=== PATIENT | female | born 1990 | race Caucasian/White ===

== ENCOUNTER 2017-12-28 14:17 | Emergency (ER) | payer OTHER ==
[2017-12-28 15:44] LABS: APPEARANCE HAZY (CLEAR); BILIRUBIN NEGATIVE (NEGATIVE); COLOR YELLOW (YELLOW); GLUCOSE NEGATIVE (NEGATIVE); KETONE NEGATIVE (NEGATIVE); NITRITE NEGATIVE (NEGATIVE); PROTEIN TRACE mg/dL (NEGATIVE); UROBILINOGEN NORMAL (NORMAL)
[2017-12-28 15:45] LABS: WHITE CELLS - URINE 0-5 /hpf (0-5)
[2017-12-28 15:46] LABS: BACTERIA FEW /hpf (NONE SEEN)
[2017-12-28 15:49] LABS: HCG SERUM NEGATIVE (NEGATIVE)
== END 2017-12-28 20:42 | disposition home or self-care (01) ==
LOC: D.ER 14:17
PROVIDERS: Emergency Medicine
DX: R10.32 Left lower quadrant pain (principal); R10.31 Right lower quadrant pain; R10.2 Pelvic and perineal pain; N94.9 Unspecified condition associated with female genital organs and menstrual cycle; N76.0 Acute vaginitis

== ENCOUNTER 2018-07-19 16:08 | Emergency (ER) | payer OTHER ==
[~2018-07-19] VITALS: Ht 162.6 cm; Wt 45.9 kg
[2018-07-19 16:13] VITALS: Ht 162.6 cm; Wt 45.9 kg
[2018-07-19 16:54] LABS: BASOPHILS 0 % (0-2); EOSINOPHILS 0 % (0-7); HEMATOCRIT 36.7 % (36.0-48.0); HEMOGLOBIN 12.4 g/dL (12-16); IMMATURE GRANULOCYTES 0.1 % (0-5); LYMPHOCYTES 7.9 % (15-50); MCH 28.8 pg (26.0-34.0); MCHC 33.8 g/dL (31.0-37.0); MCV 85.3 fL (80.0-100.0); MEAN PLATELET VOLUME 9.6 fL (7.4-10.4); MONOCYTES 7.9 % (2-11); NEUTROPHILS 84.1 % (40-80); PLATELET COUNT 169 10x3/uL (130-400); RDW 13.8 % (11.5-14.5); WBC 8.9 10x3/uL (4.8-10.8)
[2018-07-19 17:14] LABS: HCG URINE NEGATIVE (NEGATIVE)
[2018-07-19 17:15] LABS: APPEARANCE HAZY (CLEAR); BILIRUBIN NEGATIVE (NEGATIVE); COLOR YELLOW (YELLOW); GLUCOSE NEGATIVE (NEGATIVE); KETONE SMALL mg/dL (NEGATIVE); NITRITE POSITIVE (NEGATIVE); PROTEIN NEGATIVE (NEGATIVE); UROBILINOGEN NORMAL (NORMAL)
[2018-07-19 17:17] LABS: BACTERIA MANY /hpf (NONE SEEN); EPITHELIAL CELLS 0-5 /hpf (0-5); RED CELLS - URINE 0-5 /hpf (0-5)
[2018-07-19 18:07] LABS: ALBUMIN 3.6 g/dL (3.4-5.0); ALKALINE PHOSPHATASE 50 U/L (46-116); ALT (SGPT) 19 U/L (10-68); BILIRUBIN - TOTAL 0.72 mg/dL (0.2-1.3); CALC OSMOLALITY 274 mosm/kg (275-300); CALCIUM 8.8 mg/dL (8.5-10.1); CARBON DIOXIDE 24.6 mmol/L (21.0-32.0); CHLORIDE - SERUM 102 mmol/L (98-107); CREATININE - SERUM 0.7 mg/dL (0.6-1.3); GLUCOSE 110 mg/dL (74-106); POTASSIUM - SERUM 3.6 mmol/L (3.5-5.1); PROTEIN - SERUM 7.5 g/dL (6.4-8.2); SODIUM 137 mmol/L (136-145); UREA NITROGEN 12 mg/dL (7-18); eGFR NON AFRICAN AMERICAN > 90 mL/min (90-120)
[2018-07-19] MEDS ORDERED: MACROBID100 MG PO (18:19)
[2018-07-19] MEDS ORDERED: ZOFRAN8 MG PO (18:19)
[2018-07-19] MEDS ORDERED: TORADOL10 MG PO (18:19)
[2018-07-19 18:59] VITALS: BP 96/53
== END 2018-07-19 18:59 | disposition home or self-care (01) ==
LOC: D.ER 16:08
PROVIDERS: Emergency Medicine
DX: R50.9 Fever, unspecified (principal); N12 Tubulo-interstitial nephritis, not specified as acute or chronic; R35.0 Frequency of micturition; M25.561 Pain in right knee

== ENCOUNTER 2019-03-05 16:22 | Emergency (ER) | payer SELFPAY ==
[~2019-03-05] VITALS: Ht 162.6 cm; Wt 57.0 kg
[~2019-03-05 16:22] MED LIST: MACROBID100 MG PO; TORADOL10 MG PO; ZOFRAN8 MG PO
[2019-03-05 16:41] VITALS: Ht 162.6 cm; Wt 57.0 kg
[2019-03-05 18:02] LABS: HCG URINE NEGATIVE (NEGATIVE)
[2019-03-05 18:08] LABS: APPEARANCE CLEAR (CLEAR); BILIRUBIN NEGATIVE (NEGATIVE); COLOR STRAW (YELLOW); GLUCOSE NEGATIVE (NEGATIVE); KETONE NEGATIVE (NEGATIVE); NITRITE POSITIVE (NEGATIVE); PROTEIN NEGATIVE (NEGATIVE); UROBILINOGEN NORMAL (NORMAL)
[2019-03-05 18:11] LABS: BACTERIA MANY /hpf (NONE SEEN); RED CELLS - URINE OCC /hpf (0-5); WHITE CELLS - URINE 0-5 /hpf (0-5)
[2019-03-05] MEDS ORDERED: MACROBID100 MG PO (20:17)
[2019-03-05] MEDS ORDERED: TORADOL10 MG PO (20:17)
[2019-03-05 20:30] VITALS: BP 120/70
== END 2019-03-05 18:54 | disposition other institution (70) ==
LOC: D.ER 16:22
PROVIDERS: Emergency Medicine
DX: D21.9 Benign neoplasm of connective and other soft tissue, unspecified (principal)